=== PATIENT | female | born 1930 | race Asian ===

== ENCOUNTER 2018-02-14 14:00 | Emergency (ER) | payer MEDICARE, OTHER ==
[~2018-02-14] VITALS: Ht 157.5 cm; Wt 59.1 kg
[~2018-02-14 14:00] MED LIST: ALBU8HFA4 IH; ALLO100T PO; ALPR0.255 PO; AMLO5TAB66 PO; ASPI-825 PO; CALC-26 PO; INDO50 PO; METF-446 PO; PIOG30TA10 PO; PRAV40TA4 PO
[2018-02-14 14:39] LABS: GLUCOSE,POINT OF CARE 211 MG/DL (70-110)
[2018-02-14] MEDS ORDERED: FLUORESCEIN SODIUM 1 MG STRIP OU ONE (15:30)
[2018-02-14] MEDS ORDERED: PROPARACAINE HCL 0.5% 15 ML OPHTHALMIC SOLUTION OU ONE (15:30)
[2018-02-14] MEDS ORDERED: ERYTHROMYCIN 0.5% 3.5 GM TUBE OPHTHALMIC OINTMENT OS ONE (16:00)
[2018-02-14 16:40] VITALS: BP 136/69
== END 2018-02-14 17:11 | disposition home or self-care (01) ==
LOC: EMS 14:00
DX: S05.02XA Injury of conjunctiva and corneal abrasion without foreign body, left eye, initial encounter (principal); I10 Essential (primary) hypertension; E11.9 Type 2 diabetes mellitus without complications; E78.00 Pure hypercholesterolemia, unspecified; J45.909 Unspecified asthma, uncomplicated; F41.9 Anxiety disorder, unspecified; Z87.891 Personal history of nicotine dependence; Z88.0 Allergy status to penicillin; Z88.2 Allergy status to sulfonamides; Z79.82 Long term (current) use of aspirin; X58.XXXA Exposure to other specified factors, initial encounter; Y93.89 Activity, other specified; Y92.89 Other specified places as the place of occurrence of the external cause; Y99.8 Other external cause status

== ENCOUNTER 2018-02-15 09:31 | Inpatient (IN) | payer MEDICARE, OTHER ==
[~2018-02-15] VITALS: Ht 165.1 cm; Wt 58.9 kg
[~2018-02-15 09:31] MED LIST changes: -ALPR0.255 PO
[2018-02-15 09:43] LABS: GLUCOSE,POINT OF CARE 308 MG/DL (70-110)
[2018-02-15 10:38] LABS: BASOPHILS % (AUTO) 0.8 % (0.0-2.0); EOSINOPHILS % (AUTO) 4.7 % (1.0-6.0); HEMATOCRIT 36.7 % (36-46); HEMOGLOBIN 12.3 g/dL (12.0-16.0); LYMPHOCYTES # (AUTO) 0.5 K/uL (1.0-4.8); LYMPHOCYTES % (AUTO) 12.6 % (22.0-44.0); MEAN CORPUSCULAR HEMOGLOBIN 30.1 pg (26.0-34.0); MEAN CORPUSCULAR HGB CONC 33.5 G/dL (31.0-37.0); MEAN CORPUSCULAR VOLUME 90 fL (80-100); MONOCYTES # (AUTO) 0.7 K/uL (0.1-1.0); MONOCYTES % (AUTO) 17.3 % (2.0-9.0); NEUTROPHILS # (AUTO) 2.6 K/uL (1.8-7.7); NEUTROPHILS % (AUTO) 64.6 % (40.0-70.0); PLATELET COUNT (AUTO) 121 K/uL (150-450); RED BLOOD CELL COUNT(AUTO) 4.07 MIL/uL (4.00-5.20); RED CELL DISTRIBUTION WIDTH 17.6 % (11.5-14.5)
[2018-02-15 11:06] LABS: ANION GAP 9 mmol/L (8-16); CALCIUM, TOTAL 8.9 mg/dL (8.8-10.5); CARBON DIOXIDE 28 mmol/L (22-29); CHLORIDE 94 mmol/L (98-107); CREATININE 1.28 mg/dL (0.60-1.30); GLOMERULAR FILTR. RATE CALC 40 mL/min (>60); GLUCOSE,RANDOM 295 mg/dL (70-110); POTASSIUM 3.8 mmol/L (3.5-5.1); SODIUM SERUM 131 mmol/L (136-145); UREA NITROGEN, BLOOD 27 mg/dL (7-18)
[2018-02-15 11:09] LABS: ACETONE,BLOOD NEGATIVE (NEGATIVE)
[2018-02-15 11:12] LABS: ALANINE AMINOTRANSFERASE 126 U/L (12-78); ALBUMIN 3.5 g/dL (3.4-5.0); ALKALINE PHOSPHATASE 132 U/L (46-116); ASPARTATE AMINOTRANSFERASE 70 U/L (15-37); BILIRUBIN,TOTAL 0.9 mg/dL (0.1-1.0); LIPASE 137 U/L (73-393); TOTAL PROTEIN, SERUM 7.4 g/dL (6.4-8.2)
[2018-02-15] MEDS ORDERED: FLUORESCEIN SODIUM 1 MG STRIP OS ONE (11:15)
[2018-02-15] MEDS ORDERED: PROPARACAINE HCL 0.5% 15 ML OPHTHALMIC SOLUTION OS ONE (11:15)
[2018-02-15 12:08] LABS: APPEARANCE,URINE CLOUDY (CLEAR); BILIRUBIN,URINE NEGATIVE (NEGATIVE); GLUCOSE, URINE (UA) 250 mg/dL (NEGATIVE); KETONES,URINE NEGATIVE (NEGATIVE); LEUKOCYTE ESTERASE ,URINE LARGE (NEGATIVE); NITRATE,URINE NEGATIVE (NEGATIVE); OCCULT BLOOD,URINE SMALL (NEGATIVE); PROTEIN,URINE POS 1+ (NEGATIVE); UROBILINOGEN,URINE 0.2 mg/dL (<=1.0)
[2018-02-15] MEDS ORDERED: CODEINE SULFATE 30 MG TABLET PO ONE (12:15)
[2018-02-15 12:30] LABS: BACTERIA,URINE Few /HPF (None Seen); RENAL EPITHELIAL CELLS,URINE Few /LPF (None Seen); SQUAMOUS EPITHELIAL CELL,UR Rare /LPF (None Seen); WBC,URINE 26-50 /HPF (0-5)
[2018-02-15] MEDS ORDERED: ERYTHROMYCIN 0.5% 3.5 GM TUBE OPHTHALMIC OINTMENT OS ONE (14:45)
[2018-02-15] MEDS ORDERED: MORPHINE SULFATE 4 MG/ML SYRINGE IVP ONE (15:45)
[2018-02-15] MEDS ORDERED: ACETAMINOPHEN 325 MG TABLET PO PRN (16:15)
[2018-02-15] MEDS ORDERED: 0.9% SODIUM CHLORIDE 10 ML SYRINGE IVP PRN (16:15)
[2018-02-15] MEDS ORDERED: PANTOPRAZOLE SODIUM 80 MG in SODIUM CHLORIDE 0.9% 100 ML IV SCH ×3 (16:15→19:45)
[2018-02-15] MEDS ORDERED: ONDANSETRON HCL 4 MG/2 ML VIAL IVP PRN (16:15)
[2018-02-15] MEDS ORDERED: ONDANSETRON HCL 4 MG/2 ML VIAL IVP ONE (17:30)
[2018-02-15 18:15] LABS: OCCULT BLOOD,GASTRIC FLUID POSITIVE (NEGATIVE)
[2018-02-15] MEDS ORDERED: SODIUM CHLORIDE 0.9% 1,000 ML IV ONE (18:45)
[2018-02-15] MEDS ORDERED: BISACODYL 10 MG RECTAL RECTAL SUPPOSITORY PR PRN (18:45)
[2018-02-15] MEDS ORDERED: MAGNESIUM HYDROXIDE SUSPENSION 30 ML UDCUP PO PRN (18:45)
[2018-02-15] MEDS ORDERED: MORPHINE SULFATE 2 MG/ML SYRINGE IVP PRN (18:45)
[2018-02-15] MEDS ORDERED: DEXTROSE 50%-WATER 25 GM/50 ML SYRINGE IVP PRN (18:45)
[2018-02-15] MEDS ORDERED: ZOLPIDEM TARTRATE 5 MG TABLET PO PRN (18:45)
[2018-02-15 20:45] VITALS: BP 154/70
[2018-02-15] MEDS: DOCUSATE SODIUM 100 MG CAPSULE PO SCH (21:07)
[2018-02-15] MEDS: ACETAMINOPHEN 325 MG TABLET PO PRN (21:07)
[2018-02-15] MEDS: INSULIN LISPRO 100 UNITS/ML SQ PRN (21:26)
[2018-02-15] MEDS: MORPHINE SULFATE 4 MG/ML SYRINGE IVP PRN (21:40)
[2018-02-15 23:18] VITALS: BP 145/67
[2018-02-15 23:44] LABS: GLUCOMETER DEV NAME(LOC) 6N 2D; GLUCOSE,POINT OF CARE 269 MG/DL (70-110)
[2018-02-16] MEDS ORDERED: ERYTHROMYCIN 0.5% 3.5 GM TUBE OPHTHALMIC OINTMENT OS SCH
[2018-02-16] MEDS: ERYTHROMYCIN 0.5% 1 GM TUBE OPHTHALMIC OINTMENT OS SCH ×5 (01:22→22:20)
[2018-02-16] MEDS: ONDANSETRON HCL 4 MG/2 ML VIAL IVP PRN ×2 (01:32→18:24)
[2018-02-16] MEDS: PANTOPRAZOLE SODIUM 80 MG in SODIUM CHLORIDE 0.9% 100 ML IV SCH ×3 (01:35→22:28)
[2018-02-16] MEDS: MORPHINE SULFATE 4 MG/ML SYRINGE IVP PRN ×2 (01:55→18:23)
[2018-02-16 04:36] VITALS: BP 158/79
[2018-02-16] MEDS: HYDROCODONE/ACETAMINOPHEN 5-325 MG TABLET PO PRN ×4 (05:09→21:43)
[2018-02-16] MEDS: INSULIN LISPRO 100 UNITS/ML SQ PRN ×4 (05:36→21:48)
[2018-02-16 05:59] LABS: GLUCOMETER DEV NAME(LOC) 6N 1E; GLUCOSE,POINT OF CARE 226 MG/DL (70-110)
[2018-02-16 06:56] LABS: BASOPHILS % (AUTO) 0.6 % (0.0-2.0); EOSINOPHILS % (AUTO) 0.2 % (1.0-6.0); HEMATOCRIT 33.9 % (36-46); HEMOGLOBIN 11.5 g/dL (12.0-16.0); LYMPHOCYTES # (AUTO) 0.5 K/uL (1.0-4.8); LYMPHOCYTES % (AUTO) 13.4 % (22.0-44.0); MEAN CORPUSCULAR HEMOGLOBIN 29.9 pg (26.0-34.0); MEAN CORPUSCULAR HGB CONC 33.8 G/dL (31.0-37.0); MEAN CORPUSCULAR VOLUME 88 fL (80-100); MONOCYTES # (AUTO) 0.5 K/uL (0.1-1.0); MONOCYTES % (AUTO) 14.5 % (2.0-9.0); NEUTROPHILS # (AUTO) 2.4 K/uL (1.8-7.7); NEUTROPHILS % (AUTO) 71.3 % (40.0-70.0); PLATELET COUNT (AUTO) 121 K/uL (150-450); RED BLOOD CELL COUNT(AUTO) 3.84 MIL/uL (4.00-5.20); RED CELL DISTRIBUTION WIDTH 17.4 % (11.5-14.5)
[2018-02-16 07:19] LABS: ALBUMIN 3.4 g/dL (3.4-5.0); BILIRUBIN,TOTAL 0.8 mg/dL (0.1-1.0); CALCIUM, TOTAL 8.8 mg/dL (8.8-10.5); CREATININE 1.12 mg/dL (0.60-1.30); POTASSIUM 4.1 mmol/L (3.5-5.1); TOTAL PROTEIN, SERUM 7.1 g/dL (6.4-8.2)
[2018-02-16] MEDS ORDERED: PNEUMOCOCCAL VACCINE POLYVALENT 0.5 ML VIAL [PPSV23] IM ONE (08:00)
[2018-02-16] MEDS ORDERED: SODIUM CHLORIDE 0.9% 1,000 ML IV ONE (08:21)
[2018-02-16] MEDS ORDERED: PANTOPRAZOLE SODIUM 40 MG DR TABLET PO SCH (09:00)
[2018-02-16 09:02] VITALS: BP 162/83
[2018-02-16] MEDS: PRAVASTATIN SODIUM 40 MG TABLET PO SCH (09:03)
[2018-02-16] MEDS: AmLODIPine BESYLATE 5 MG TABLET PO SCH (09:03)
[2018-02-16] MEDS: DOCUSATE SODIUM 100 MG CAPSULE PO SCH ×2 (09:03→21:47)
[2018-02-16 13:41] VITALS: BP 153/78
[2018-02-16 16:33] VITALS: BP 150/70
[2018-02-16 19:48] LABS: GLUCOMETER DEV NAME(LOC) 6N 2D; GLUCOSE,POINT OF CARE 273 MG/DL (70-110)
[2018-02-16 19:48] LABS: GLUCOMETER DEV NAME(LOC) 6N 2D; GLUCOSE,POINT OF CARE 248 MG/DL (70-110)
[2018-02-16 20:13] VITALS: BP 159/65
[2018-02-16 21:13] LABS: GLUCOMETER DEV NAME(LOC) 6N 1E; GLUCOSE,POINT OF CARE 214 MG/DL (70-110)
[2018-02-17] MEDS: MORPHINE SULFATE 4 MG/ML SYRINGE IVP PRN ×4 (00:24→23:34)
[2018-02-17 01:22] VITALS: BP 149/66
[2018-02-17 05:26] VITALS: BP 160/77
[2018-02-17] MEDS: INSULIN LISPRO 100 UNITS/ML SQ PRN ×4 (06:20→21:01)
[2018-02-17] MEDS: HYDROCODONE/ACETAMINOPHEN 5-325 MG TABLET PO PRN ×2 (06:23→18:49)
[2018-02-17 06:49] LABS: GLUCOMETER DEV NAME(LOC) 6N 2D; GLUCOSE,POINT OF CARE 197 MG/DL (70-110)
[2018-02-17] MEDS: ONDANSETRON HCL 4 MG/2 ML VIAL IVP PRN ×2 (08:15→16:51)
[2018-02-17] MEDS: AmLODIPine BESYLATE 5 MG TABLET PO SCH (08:15)
[2018-02-17] MEDS: PRAVASTATIN SODIUM 40 MG TABLET PO SCH (08:15)
[2018-02-17] MEDS: ERYTHROMYCIN 0.5% 1 GM TUBE OPHTHALMIC OINTMENT OS SCH (08:15)
[2018-02-17] MEDS: DOCUSATE SODIUM 100 MG CAPSULE PO SCH ×2 (08:15→21:00)
[2018-02-17 08:24] VITALS: BP 175/75
[2018-02-17] MEDS: PANTOPRAZOLE SODIUM 80 MG in SODIUM CHLORIDE 0.9% 100 ML IV SCH ×3 (08:57→19:42)
[2018-02-17 11:45] VITALS: BP 155/69
[2018-02-17 11:45] LABS: BASOPHILS % (AUTO) 0.9 % (0.0-2.0); EOSINOPHILS % (AUTO) 0.3 % (1.0-6.0); HEMATOCRIT 33.4 % (36-46); HEMOGLOBIN 11.3 g/dL (12.0-16.0); LYMPHOCYTES # (AUTO) 0.7 K/uL (1.0-4.8); LYMPHOCYTES % (AUTO) 13.8 % (22.0-44.0); MEAN CORPUSCULAR HEMOGLOBIN 30.4 pg (26.0-34.0); MEAN CORPUSCULAR VOLUME 89 fL (80-100); MONOCYTES # (AUTO) 0.7 K/uL (0.1-1.0); MONOCYTES % (AUTO) 14.9 % (2.0-9.0); NEUTROPHILS # (AUTO) 3.4 K/uL (1.8-7.7); NEUTROPHILS % (AUTO) 70.1 % (40.0-70.0); PLATELET COUNT (AUTO) 127 K/uL (150-450); RED BLOOD CELL COUNT(AUTO) 3.74 MIL/uL (4.00-5.20); RED CELL DISTRIBUTION WIDTH 16.9 % (11.5-14.5)
[2018-02-17 11:48] LABS: GLUCOMETER DEV NAME(LOC) 6N.1; GLUCOSE,POINT OF CARE 246 MG/DL (70-110)
[2018-02-17] MEDS: ACETAMINOPHEN 325 MG TABLET PO PRN (12:44)
[2018-02-17] MEDS: ERYTHROMYCIN 0.5% 3.5 GM TUBE OPHTHALMIC OINTMENT OS SCH ×2 (16:00→23:49)
[2018-02-17 16:20] VITALS: BP 159/72
[2018-02-17] MEDS: NYSTATIN 15 GM POWDER BOTTLE TP SCH ×2 (16:51→21:00)
[2018-02-17 19:38] LABS: GLUCOMETER DEV NAME(LOC) 6N.1; GLUCOSE,POINT OF CARE 210 MG/DL (70-110)
[2018-02-17 20:29] VITALS: BP 165/70
[2018-02-17 22:39] LABS: GLUCOMETER DEV NAME(LOC) 6N.2; GLUCOSE,POINT OF CARE 192 MG/DL (70-110)
[2018-02-18 00:35] VITALS: BP 167/72
[2018-02-18] MEDS: HYDROCODONE/ACETAMINOPHEN 5-325 MG TABLET PO PRN (02:18)
[2018-02-18 03:30] VITALS: BP 161/74
[2018-02-18 07:09] LABS: GLUCOMETER DEV NAME(LOC) 6N.1; GLUCOSE,POINT OF CARE 204 MG/DL (70-110)
[2018-02-18] MEDS: MORPHINE SULFATE 4 MG/ML SYRINGE IVP PRN (07:24)
[2018-02-18 07:35] VITALS: BP 177/77
[2018-02-18] MEDS: ERYTHROMYCIN 0.5% 3.5 GM TUBE OPHTHALMIC OINTMENT OS SCH ×2 (08:00→16:00)
[2018-02-18] MEDS ORDERED: GADOBUTROL 1 MMOL/ML 10 ML VIAL IVP ONE (08:17)
[2018-02-18] MEDS: DOCUSATE SODIUM 100 MG CAPSULE PO SCH ×2 (09:00→21:22)
[2018-02-18] MEDS: PANTOPRAZOLE SODIUM 80 MG in SODIUM CHLORIDE 0.9% 100 ML IV SCH ×2 (10:07→17:46)
[2018-02-18] MEDS: PRAVASTATIN SODIUM 40 MG TABLET PO SCH (10:08)
[2018-02-18] MEDS: AmLODIPine BESYLATE 5 MG TABLET PO SCH (10:08)
[2018-02-18] MEDS: NYSTATIN 15 GM POWDER BOTTLE TP SCH ×2 (10:09→21:33)
[2018-02-18 10:13] LABS: BASOPHILS % (AUTO) 0.9 % (0.0-2.0); EOSINOPHILS % (AUTO) 0.2 % (1.0-6.0); HEMATOCRIT 34.8 % (36-46); HEMOGLOBIN 11.9 g/dL (12.0-16.0); LYMPHOCYTES # (AUTO) 0.9 K/uL (1.0-4.8); LYMPHOCYTES % (AUTO) 14.4 % (22.0-44.0); MEAN CORPUSCULAR HEMOGLOBIN 29.9 pg (26.0-34.0); MEAN CORPUSCULAR HGB CONC 34.3 G/dL (31.0-37.0); MEAN CORPUSCULAR VOLUME 87 fL (80-100); MONOCYTES % (AUTO) 17.1 % (2.0-9.0); NEUTROPHILS % (AUTO) 67.4 % (40.0-70.0); PLATELET COUNT (AUTO) 130 K/uL (150-450); RED BLOOD CELL COUNT(AUTO) 3.98 MIL/uL (4.00-5.20); RED CELL DISTRIBUTION WIDTH 17.3 % (11.5-14.5)
[2018-02-18] MEDS: ACETAMINOPHEN 325 MG TABLET PO PRN ×3 (10:19→21:22)
[2018-02-18 10:30] LABS: CALCIUM, TOTAL 8.7 mg/dL (8.8-10.5); POTASSIUM 3.2 mmol/L (3.5-5.1)
[2018-02-18 11:23] VITALS: BP 161/68
[2018-02-18] MEDS ORDERED: AmLODIPine BESYLATE 5 MG TABLET PO ONE (11:45)
[2018-02-18] MEDS: INSULIN LISPRO 100 UNITS/ML SQ PRN ×3 (12:15→22:00)
[2018-02-18 14:09] LABS: GLUCOMETER DEV NAME(LOC) 6N.2; GLUCOSE,POINT OF CARE 164 MG/DL (70-110)
[2018-02-18 15:55] VITALS: BP 138/68
[2018-02-18 18:00] LABS: GLUCOMETER DEV NAME(LOC) 6N.2; GLUCOSE,POINT OF CARE 226 MG/DL (70-110)
[2018-02-18 20:25] VITALS: BP 149/70
[2018-02-18] MEDS ORDERED: ERYTHROMYCIN 0.5% 3.5 GM TUBE OPHTHALMIC OINTMENT OU SCH (21:00)
[2018-02-18] MEDS: ValACYclovir HCL 500 MG TABLET PO SCH (21:23)
[2018-02-18] MEDS: BRIMONIDINE TARTRATE 0.1% 5 ML OPHTHALMIC SOLUTION OS SCH (21:25)
[2018-02-18] MEDS: DORZOLAMIDE/TIMOLOL 2-0.5% [22.3-6.8MG/ML] 10 ML OPHTHALMIC SOLUTION OS SCH (21:27)
[2018-02-18] MEDS: PrednisoLONE ACETATE 1% 5 ML OPHTHALMIC SUSPENSION OS SCH (21:30)
[2018-02-18] MEDS: ERYTHROMYCIN 0.5% 3.5 GM TUBE OPHTHALMIC OINTMENT TP SCH (21:31)
[2018-02-18 23:34] LABS: GLUCOMETER DEV NAME(LOC) 6N.2; GLUCOSE,POINT OF CARE 221 MG/DL (70-110)
[2018-02-19 00:26] VITALS: BP 144/71
[2018-02-19] MEDS: ACETAMINOPHEN 325 MG TABLET PO PRN ×4 (02:57→20:53)
[2018-02-19] MEDS: PANTOPRAZOLE SODIUM 80 MG in SODIUM CHLORIDE 0.9% 100 ML IV SCH (02:58)
[2018-02-19 04:35] VITALS: BP 158/76
[2018-02-19] MEDS: INSULIN LISPRO 100 UNITS/ML SQ PRN ×4 (06:25→21:00)
[2018-02-19 07:18] LABS: CALCIUM, TOTAL 8.7 mg/dL (8.8-10.5); CREATININE 1.04 mg/dL (0.60-1.30)
[2018-02-19 07:34] LABS: GLUCOMETER DEV NAME(LOC) 6N.1; GLUCOSE,POINT OF CARE 194 MG/DL (70-110)
[2018-02-19 07:51] VITALS: BP 147/72
[2018-02-19] MEDS: AmLODIPine BESYLATE 10 MG TABLET PO SCH (08:50)
[2018-02-19] MEDS: PRAVASTATIN SODIUM 40 MG TABLET PO SCH (08:50)
[2018-02-19] MEDS: ValACYclovir HCL 500 MG TABLET PO SCH ×3 (08:50→22:50)
[2018-02-19] MEDS: NYSTATIN 15 GM POWDER BOTTLE TP SCH ×2 (08:51→20:46)
[2018-02-19] MEDS: DORZOLAMIDE/TIMOLOL 2-0.5% [22.3-6.8MG/ML] 10 ML OPHTHALMIC SOLUTION OS SCH ×2 (08:51→20:46)
[2018-02-19] MEDS: PrednisoLONE ACETATE 1% 5 ML OPHTHALMIC SUSPENSION OS SCH ×4 (08:51→20:50)
[2018-02-19] MEDS: DOCUSATE SODIUM 100 MG CAPSULE PO SCH ×2 (08:52→21:10)
[2018-02-19] MEDS: BRIMONIDINE TARTRATE 0.1% 5 ML OPHTHALMIC SOLUTION OS SCH ×3 (08:52→20:54)
[2018-02-19] MEDS: ERYTHROMYCIN 0.5% 3.5 GM TUBE OPHTHALMIC OINTMENT TP SCH ×4 (08:53→20:55)
[2018-02-19] MEDS ORDERED: POTASSIUM CHL 10 MEQ/WATER 50 ML IV PRN (11:15)
[2018-02-19] MEDS ORDERED: POTASSIUM CHLORIDE 20 MEQ ER TABLET PO PRN (11:15)
[2018-02-19] MEDS: PANTOPRAZOLE SODIUM 40 MG DR TABLET PO SCH ×2 (11:58→21:10)
[2018-02-19 12:16] VITALS: BP 129/60
[2018-02-19 13:59] LABS: GLUCOMETER DEV NAME(LOC) 6N.1; GLUCOSE,POINT OF CARE 238 MG/DL (70-110)
[2018-02-19] MEDS: GABAPENTIN 100 MG CAPSULE PO SCH ×2 (15:37→22:50)
[2018-02-19 16:00] VITALS: BP 136/66
[2018-02-19 20:07] VITALS: BP 131/70
[2018-02-19 20:19] LABS: GLUCOMETER DEV NAME(LOC) 6N.1; GLUCOSE,POINT OF CARE 202 MG/DL (70-110)
[2018-02-19 21:23] LABS: GLUCOMETER DEV NAME(LOC) 6N.2; GLUCOSE,POINT OF CARE 151 MG/DL (70-110)
[2018-02-20 00:08] VITALS: BP 130/61
[2018-02-20] MEDS: ACETAMINOPHEN 325 MG TABLET PO PRN ×3 (02:34→16:20)
[2018-02-20 05:14] VITALS: BP 141/64
[2018-02-20] MEDS: INSULIN LISPRO 100 UNITS/ML SQ PRN ×3 (05:52→17:42)
[2018-02-20 07:39] LABS: CALCIUM, TOTAL 8.5 mg/dL (8.8-10.5); CREATININE 1.25 mg/dL (0.60-1.30); POTASSIUM 3.5 mmol/L (3.5-5.1)
[2018-02-20 07:49] LABS: GLUCOMETER DEV NAME(LOC) 6N.2; GLUCOSE,POINT OF CARE 241 MG/DL (70-110)
[2018-02-20 08:00] VITALS: BP 139/69
[2018-02-20] MEDS: DOCUSATE SODIUM 100 MG CAPSULE PO SCH (08:44)
[2018-02-20] MEDS: GABAPENTIN 100 MG CAPSULE PO SCH ×2 (08:44→16:20)
[2018-02-20] MEDS: PRAVASTATIN SODIUM 40 MG TABLET PO SCH (08:44)
[2018-02-20] MEDS: AmLODIPine BESYLATE 10 MG TABLET PO SCH (08:44)
[2018-02-20] MEDS: ValACYclovir HCL 500 MG TABLET PO SCH ×2 (08:45→16:19)
[2018-02-20] MEDS: PANTOPRAZOLE SODIUM 40 MG DR TABLET PO SCH (08:45)
[2018-02-20] MEDS: NYSTATIN 15 GM POWDER BOTTLE TP SCH (08:46)
[2018-02-20] MEDS: PrednisoLONE ACETATE 1% 5 ML OPHTHALMIC SUSPENSION OS SCH ×3 (08:46→16:38)
[2018-02-20] MEDS: DORZOLAMIDE/TIMOLOL 2-0.5% [22.3-6.8MG/ML] 10 ML OPHTHALMIC SOLUTION OS SCH (08:52)
[2018-02-20] MEDS: BRIMONIDINE TARTRATE 0.1% 5 ML OPHTHALMIC SOLUTION OS SCH ×2 (09:07→16:39)
[2018-02-20] MEDS: ERYTHROMYCIN 0.5% 3.5 GM TUBE OPHTHALMIC OINTMENT TP SCH ×3 (09:07→16:39)
[2018-02-20 12:00] VITALS: BP 129/68
[2018-02-20] MEDS: HYDROCODONE/ACETAMINOPHEN 5-325 MG TABLET PO PRN (12:54)
[2018-02-20 13:34] LABS: GLUCOMETER DEV NAME(LOC) 6N.2; GLUCOSE,POINT OF CARE 210 MG/DL (70-110)
[2018-02-20 16:00] VITALS: BP 149/65
[2018-02-20 20:14] LABS: GLUCOMETER DEV NAME(LOC) 6N.1; GLUCOSE,POINT OF CARE 239 MG/DL (70-110)
[2018-02-20 20:17] VITALS: BP 123/56
== END 2018-02-20 20:25 | disposition short-term general hospital (02) | DRG 381 ==
LOC: EMS 09:31 → 6N 17:45
PROVIDERS: ADMIT Internal Medicine; ATTEND Internal Medicine
PROC: 3E0234Z Introduction of Serum, Toxoid and Vaccine into Muscle, Percutaneous Approach (ICD-10-PCS; 2018-02-16)
PROC: 0DB68ZX Excision of Stomach, Via Natural or Artificial Opening Endoscopic, Diagnostic (ICD-10-PCS; principal; 2018-02-16 07:00)
DX: K22.11 Ulcer of esophagus with bleeding (principal); B02.30 Zoster ocular disease, unspecified; K86.2 Cyst of pancreas; K29.01 Acute gastritis with bleeding; H10.9 Unspecified conjunctivitis; J45.909 Unspecified asthma, uncomplicated; E11.9 Type 2 diabetes mellitus without complications; I10 Essential (primary) hypertension; D50.0 Iron deficiency anemia secondary to blood loss (chronic); F41.9 Anxiety disorder, unspecified; E78.5 Hyperlipidemia, unspecified; H40.059 Ocular hypertension, unspecified eye; E78.00 Pure hypercholesterolemia, unspecified; K76.0 Fatty (change of) liver, not elsewhere classified; K82.8 Other specified diseases of gallbladder; M10.9 Gout, unspecified; L98.9 Disorder of the skin and subcutaneous tissue, unspecified; K80.20 Calculus of gallbladder without cholecystitis without obstruction; Z87.19 Personal history of other diseases of the digestive system; Z87.891 Personal history of nicotine dependence; Z90.710 Acquired absence of both cervix and uterus; Z79.899 Other long term (current) drug therapy; Z23 Encounter for immunization
CPT/HCPCS: 74181; 76700; 82271; 82378; 83605; 86301; 86850; 86900; 86901; 87040; 87081; 87086; 88305; 88312; 96365; 96375; A9585; C9113; G0378; J2270; J2405; J7030; J7050

== ENCOUNTER 2018-03-15 02:38 | Emergency (ER) | payer MEDICARE, OTHER ==
[~2018-03-15] VITALS: Ht 160 cm; Wt 59.1 kg
[2018-03-15 03:50] VITALS: BP 115/72
[2018-03-15 03:55] LABS: GLUCOSE,POINT OF CARE 173 MG/DL (70-110)
== END 2018-03-15 03:54 | disposition home or self-care (01) ==
LOC: EMS 02:38
DX: E11.649 Type 2 diabetes mellitus with hypoglycemia without coma (principal); F41.9 Anxiety disorder, unspecified; J45.909 Unspecified asthma, uncomplicated; E78.00 Pure hypercholesterolemia, unspecified; I10 Essential (primary) hypertension; Z88.0 Allergy status to penicillin; Z88.2 Allergy status to sulfonamides; Z79.82 Long term (current) use of aspirin; Z79.84 Long term (current) use of oral hypoglycemic drugs; Z90.710 Acquired absence of both cervix and uterus; Z87.891 Personal history of nicotine dependence